=== PATIENT | female | born 1945 | race Caucasian/White ===

== ENCOUNTER 2017-11-04 15:52 | Outpatient (CLI) | payer MEDICARE | END 2017-11-04 15:53 | disposition home or self-care (01) | LOC: BICMAMMO 15:52 | PROVIDERS: ATTEND Physician Assistant | DX: Z12.31 Encounter for screening mammogram for malignant neoplasm of breast (principal); R92.1 Mammographic calcification found on diagnostic imaging of breast; Z80.3 Family history of malignant neoplasm of breast | CPT/HCPCS: 77063; 77067 ==

== ENCOUNTER 2018-11-07 13:49 | Outpatient (CLI) | payer MEDICARE ==
--- NOTE | 2018-11-07 14:23 | MMO ---
Bilateral MAMMO Bilat Screen [facility]. CLINICAL HISTORY: Patient is 73 years old and is seen for screening. The patient has the following family history of breast cancer: sister, at age 58. The patient has no personal history of cancer. VIEWS: The views performed were: bilateral craniocaudal with tomosynthesis and bilateral mediolateral oblique with tomosynthesis. FILMS COMPARED: The present examination has been compared to prior imaging studies performed at [facility] [place] on 09/04/2005, 09/23/2006, 09/22/2007, 09/25/2008, 09/26/2009, 10/07/2010, 10/13/2011, 10/16/2013, 10/19/2014, 10/23/2015, 11/03/2016 and 11/04/2017, and at [facility] on 08/30/2002, 10/02/2003 and 10/03/2004. MAMMOGRAM FINDINGS: There are scattered fibroglandular densities. There are benign appearing calcifications seen in both breasts. There are no suspicious masses, suspicious calcifications, or new areas of architectural distortion. IMPRESSION: THERE IS NO MAMMOGRAPHIC EVIDENCE OF MALIGNANCY. A ROUTINE FOLLOW-UP MAMMOGRAM IN 1 YEAR IS RECOMMENDED. THE RESULTS OF THIS EXAM WERE SENT TO THE PATIENT. ACR BI-RADS Category 2 - Benign finding MAMMOGRAPHY NOTE: 1. A negative mammogram report should not delay a biopsy if a dominant of clinically suspicious mass is present. 2. Approximately 10% to 15% of breast cancers are not detected by mammography. 3. Adenosis and dense breasts may obscure an underlying neoplasm.
== END 2018-11-07 13:50 | disposition home or self-care (01) ==
LOC: BICMAMMO 13:49
PROVIDERS: ATTEND Physician Assistant
DX: Z12.31 Encounter for screening mammogram for malignant neoplasm of breast (principal); Z80.3 Family history of malignant neoplasm of breast
CPT/HCPCS: 77063; 77067

== ENCOUNTER 2019-08-08 12:59 | Outpatient (CLI) | payer MEDICARE, OTHER ==
--- NOTE | 2019-08-08 13:17 | RAD ---
EXAM: Chest 2 views: HISTORY: Dyspnea COMPARISON: None. FINDINGS: There is a normal-sized cardiomediastinal silhouette. There is no evidence of consolidation, mass, or pleural effusion. Degenerative changes are seen in the spine. IMPRESSION: No evidence of acute cardiopulmonary disease
== END 2019-08-08 13:00 | disposition home or self-care (01) ==
LOC: RAD 12:59
PROVIDERS: ATTEND Internal Medicine Critical Care Medicine
DX: R06.00 Dyspnea, unspecified (principal)
CPT/HCPCS: 71046

== ENCOUNTER 2019-11-16 14:05 | Outpatient (CLI) | payer MEDICARE ==
--- NOTE | 2019-11-16 14:41 | MMO ---
Bilateral MAMMO Bilat Screen [facility]. CLINICAL HISTORY: Patient is 74 years old and is seen for screening. The patient has the following family history of breast cancer: sister, at age 58. The patient has no personal history of cancer. VIEWS: The views performed were: bilateral craniocaudal with tomosynthesis and bilateral mediolateral oblique with tomosynthesis. FILMS COMPARED: The present examination has been compared to prior imaging studies performed at [facility] on 10/23/2015, 11/03/2016, 11/04/2017 and 11/07/2018. This study has been interpreted with the assistance of computer-aided detection. MAMMOGRAM FINDINGS: There are scattered fibroglandular densities. There are no suspicious masses, suspicious calcifications, or new areas of architectural distortion. IMPRESSION: THERE IS NO MAMMOGRAPHIC EVIDENCE OF MALIGNANCY. A ROUTINE FOLLOW-UP MAMMOGRAM IN 1 YEAR IS RECOMMENDED. THE RESULTS OF THIS EXAM WERE SENT TO THE PATIENT. ACR BI-RADS Category 1 - Negative MAMMOGRAPHY NOTE: 1. A negative mammogram report should not delay a biopsy if a dominant of clinically suspicious mass is present. 2. Approximately 10% to 15% of breast cancers are not detected by mammography. 3. Adenosis and dense breasts may obscure an underlying neoplasm. Reported by: Johnathon CERVANTES Electonically Signed: [id number]
== END 2019-11-16 14:06 | disposition home or self-care (01) ==
LOC: BICMAMMO 14:05
PROVIDERS: ATTEND Physician Assistant
DX: Z12.31 Encounter for screening mammogram for malignant neoplasm of breast (principal); Z80.3 Family history of malignant neoplasm of breast
CPT/HCPCS: 77063; 77067

== ENCOUNTER 2019-11-24 19:00 | Outpatient (CLI) | payer MEDICARE | END 2019-11-24 19:01 | disposition home or self-care (01) | LOC: SLEEPLAB 19:00 | PROVIDERS: ATTEND Internal Medicine Critical Care Medicine | DX: G47.33 Obstructive sleep apnea (adult) (pediatric) (principal); R06.83 Snoring | CPT/HCPCS: 95810 ==

== ENCOUNTER 2020-11-14 08:27 | Outpatient (CLI) | payer MEDICARE | END 2020-11-14 08:28 | disposition home or self-care (01) | LOC: BICMRI 08:27 | PROVIDERS: ATTEND Neurological Surgery | DX: M47.26 Other spondylosis with radiculopathy, lumbar region (principal) | CPT/HCPCS: 72158; 82565 ==

== ENCOUNTER 2020-11-18 13:30 | Outpatient (CLI) | payer MEDICARE | END 2020-11-18 13:31 | disposition home or self-care (01) | LOC: BICMAMMO 13:30 | PROVIDERS: ATTEND Physician Assistant | DX: Z12.31 Encounter for screening mammogram for malignant neoplasm of breast (principal); Z80.3 Family history of malignant neoplasm of breast | CPT/HCPCS: 77063; 77067 ==

== ENCOUNTER 2021-01-23 14:39 | Outpatient (CLI) | payer MEDICARE ==
[2021-01-23 16:26] LABS: Hemoglobin 13.8 g/dL (12.0-15.5); Mean Corpuscular HGB CONC 34.2 g/dL (32.0-36.0); Mean Corpuscular Hemoglobin 32.5 pg (27.0-33.0); Mean Corpuscular Volume 95.3 fl (81.6-98.3); Mean Platelet Volume 10.7 fl (7.4-10.4); Platelet Count 199 10x3/uL (150-450); RBC Distribution Width 13.6 % (11.5-14.5); Red Blood Cell (RBC) Count 4.24 10x6/uL (3.90-5.03); White Blood Cell (WBC) Count 7.8 10x3/uL (3.5-10.5)
[2021-01-23 16:38] LABS: Anion Gap 18 mmol/L (10-20); BUN (Urea Nitrogen) 14 mg/dL (9.8-20.1); Calc. Creatinine Clearance 0 mL/min (70-130); Calcium 10.3 mg/dL (7.8-10.44); Carbon Dioxide 24 mmol/L (23-31); Chloride 101 mmol/L (98-107); Glucose 97 mg/dL (83-110); Potassium 3.9 mmol/L (3.5-5.1); Sodium 139 mmol/L (136-145)
== END 2021-01-23 14:40 | disposition home or self-care (01) ==
LOC: LABBT 14:39
PROVIDERS: ATTEND Neurological Surgery
DX: Z01.818 Encounter for other preprocedural examination (principal); M54.16 Radiculopathy, lumbar region
CPT/HCPCS: 80048; 85027; 93005; 93010

== ENCOUNTER 2021-01-27 07:23 | Day surgery (SDC) | payer MEDICARE ==
[2021-01-24 13:17] VITALS: BMI 39.6
[2021-01-27] MEDS ORDERED: SUGAMMADEX SODIUM 200 MG/2 ML VIAL ONE (10:17)
[2021-01-27] MEDS ORDERED: Fentanyl 100 MCG/2 ML VIAL ONE ×4 (10:17→14:04)
[2021-01-27] MEDS ORDERED: Rocuronium Bromide 10 MG/ML (10ML VIAL) ONE (11:29)
[2021-01-27] MEDS ORDERED: PROPOFOL 200 MG/20 ML VIAL ONE (11:29)
[2021-01-27] MEDS ORDERED: Lidocaine 1% PF 5 ML VIAL ONE (11:29)
[2021-01-27] MEDS ORDERED: Glycopyrrolate 0.2 MG/ML 5 ML SYRINGE ONE (11:29)
[2021-01-27] MEDS ORDERED: PHENYLEPHRINE-NS 100 MCG/ML 10 ML SYRINGE ONE (11:29)
[2021-01-27] MEDS ORDERED: Ondansetron PF 4 MG/2 ML Vial ONE (11:29)
[2021-01-27] MEDS ORDERED: Dexamethasone 20 MG/5 ML VIAL ONE (11:29)
[2021-01-27] MEDS ORDERED: Morphine 4 MG/ML VIAL ONE (14:29)
[2021-01-27] MEDS ORDERED: traMADol HCl 50 MG TAB ONE ×2 (14:46→21:12)
== END 2021-01-27 21:20 | disposition home or self-care (01) ==
LOC: SDC 07:23
PROVIDERS: ATTEND Neurological Surgery
PROC: 01NB0ZZ Release Lumbar Nerve, Open Approach (ICD-10-PCS; principal; 2021-01-27)
DX: M48.062 Spinal stenosis, lumbar region with neurogenic claudication (principal); M47.26 Other spondylosis with radiculopathy, lumbar region; J45.909 Unspecified asthma, uncomplicated; G89.29 Other chronic pain; E03.9 Hypothyroidism, unspecified; E78.5 Hyperlipidemia, unspecified; E66.9 Obesity, unspecified; Z68.39 Body mass index [BMI] 39.0-39.9, adult; Z79.899 Other long term (current) drug therapy
CPT/HCPCS: 76000; J0690; J1100; J2270; J2405; J2704; J3010; J3370

== ENCOUNTER 2021-08-19 10:40 | Outpatient (CLI) | payer MEDICARE ==
[2021-08-19 12:18] LABS: Bilirubin Neg (Negative); Blood, Urine 50 (Negative); Clarity Slightly Cloudy (Clear); Glucose, Urine (Dipstick) Normal (Negative); Ketone, Urine Negative (Negative); Leukocyte 500 (Negative); Nitrite Negative (Negative); Protein, Urine (Dipstick) 100 mg/dl (Neg-Trace); Urobilinogen Normal mg/dL (Less than 2)
[2021-08-19 12:23] LABS: Hemoglobin 13.8 g/dL (12.0-15.5); Mean Corpuscular HGB CONC 32.8 g/dL (32.0-36.0); Mean Corpuscular Hemoglobin 33.3 pg (27.0-33.0); Mean Corpuscular Volume 101.7 fl (81.6-98.3); Mean Platelet Volume 10.6 fl (7.4-10.4); Platelet Count 172 10x3/uL (150-450); Red Blood Cell (RBC) Count 4.14 10x6/uL (3.90-5.03); White Blood Cell (WBC) Count 8.2 10x3/uL (3.5-10.5)
[2021-08-19 12:47] LABS: Anion Gap 15 mmol/L (10-20); BUN (Urea Nitrogen) 24 mg/dL (9.8-20.1); Calc. Creatinine Clearance 0 mL/min (70-130); Carbon Dioxide 29 mmol/L (23-31); Chloride 98 mmol/L (98-107); Glucose 119 mg/dL (83-110); Potassium 3.8 mmol/L (3.5-5.1); Sodium 138 mmol/L (136-145)
[2021-08-19 12:48] LABS: INR-International Normal Ratio 0.9; PTT 25.7 sec (22.0-33.0); Prothrombin Time 10.5 sec (9.5-12.1)
[2021-08-19 13:02] LABS: Bacteria/HPF 2+ HPF (None Seen); Squamous Epithelial 0-3 HPF (0-3); WBC/HPF Greater Than 50 HPF (0-3)
[2021-08-19 19:54] LABS: SARS-CoV-2 PCR by NAA Not Detected (NotDetected)
== END 2021-08-19 10:41 | disposition home or self-care (01) ==
LOC: LABBT 10:40
PROVIDERS: ATTEND Urology
DX: Z01.818 Encounter for other preprocedural examination (principal); N39.0 Urinary tract infection, site not specified; N32.81 Overactive bladder; N95.2 Postmenopausal atrophic vaginitis; E66.01 Morbid (severe) obesity due to excess calories; K59.01 Slow transit constipation; G47.34 Idiopathic sleep related nonobstructive alveolar hypoventilation; F51.01 Primary insomnia; R73.09 Other abnormal glucose; N99.89 Other postprocedural complications and disorders of genitourinary system; R33.8 Other retention of urine; Z20.822 Contact with and (suspected) exposure to COVID-19
CPT/HCPCS: 80048; 81001; 85027; 85610; 85730; 87086; 93005; U0003; U0005; 87077; 87186; 93010

== ENCOUNTER 2021-08-22 09:52 | Day surgery (SDC) | payer MEDICARE ==
[2021-08-14 10:50] VITALS: BMI 39.9
[2021-08-22] MEDS ORDERED: Fentanyl 100 MCG/2 ML VIAL ONE (10:44)
[2021-08-22] MEDS ORDERED: Famotidine/PF 20 mg/2ml Vial ONE (10:45)
[2021-08-22] MEDS ORDERED: Ondansetron PF 4 MG/2 ML Vial ONE ×2 (10:45→11:50)
[2021-08-22] MEDS ORDERED: SUGAMMADEX SODIUM 200 MG/2 ML VIAL ONE (10:45)
[2021-08-22] MEDS ORDERED: Bupivacaine 0.25% HCL 30 ML VIAL ONE (11:32)
[2021-08-22] MEDS ORDERED: Neomycin-Polymyxin 1 ML AMP ONE (11:32)
[2021-08-22] MEDS ORDERED: ceFAZolin 2 GM/Dextrose 50 ML IVPB ONE (11:36)
[2021-08-22] MEDS ORDERED: PROPOFOL 200 MG/20 ML VIAL ONE (11:50)
[2021-08-22] MEDS ORDERED: Lidocaine 1% PF 5 ML VIAL ONE (11:50)
[2021-08-22] MEDS ORDERED: Glycopyrrolate 0.2 MG/ML 5 ML SYRINGE ONE (11:50)
[2021-08-22] MEDS ORDERED: Ketorolac Tromethamine 30 MG/ML VIAL ONE (11:50)
[2021-08-22] MEDS ORDERED: Rocuronium Bromide 10 MG/ML (10ML VIAL) ONE (11:50)
[2021-08-22] MEDS ORDERED: ePHEDrine 50 MG/ML VIAL ONE (11:50)
[2021-08-22] MEDS ORDERED: Metoclopramide HCl 10 MG/2 ML VIAL ONE (11:50)
[2021-08-22] MEDS ORDERED: PHENYLEPHRINE-NS 100 MCG/ML 10 ML SYRINGE ONE (11:50)
== END 2021-08-22 18:18 | disposition home or self-care (01) ==
LOC: SDC 09:52
PROVIDERS: ATTEND Urology
PROC: 0JH70MZ Insertion of Stimulator Generator into Back Subcutaneous Tissue and Fascia, Open Approach (ICD-10-PCS; principal; 2021-08-22)
PROC: 0TH Urinary System, Insertion (ICD-10-PCS; 2021-08-22)
DX: N32.81 Overactive bladder (principal); N39.0 Urinary tract infection, site not specified; N39.46 Mixed incontinence; R33.9 Retention of urine, unspecified; K59.01 Slow transit constipation; E78.5 Hyperlipidemia, unspecified; E03.9 Hypothyroidism, unspecified; J45.909 Unspecified asthma, uncomplicated; E78.00 Pure hypercholesterolemia, unspecified; E66.01 Morbid (severe) obesity due to excess calories; Z68.39 Body mass index [BMI] 39.0-39.9, adult; Z79.82 Long term (current) use of aspirin; Z79.890 Hormone replacement therapy; Z79.899 Other long term (current) drug therapy; Z88.8 Allergy status to other drugs, medicaments and biological substances; Z91.030 Bee allergy status
CPT/HCPCS: 64581; 72220; 76000; C1897; J0690; J2405; J3010; S0020; S0028

== ENCOUNTER 2021-08-25 11:55 | Outpatient (CLI) | payer MEDICARE ==
[2021-08-26 00:40] LABS: SARS-CoV-2 PCR by NAA Not Detected (NotDetected)
== END 2021-08-25 11:56 | disposition home or self-care (01) ==
LOC: LABBT 11:55
PROVIDERS: ATTEND Urology
DX: Z01.812 Encounter for preprocedural laboratory examination (principal); N39.0 Urinary tract infection, site not specified; R33.8 Other retention of urine; N39.46 Mixed incontinence; N32.81 Overactive bladder; R33.9 Retention of urine, unspecified; N95.2 Postmenopausal atrophic vaginitis; E66.01 Morbid (severe) obesity due to excess calories; K59.01 Slow transit constipation; Z68.41 Body mass index [BMI] 40.0-44.9, adult; F51.01 Primary insomnia; G47.36 Sleep related hypoventilation in conditions classified elsewhere; R73.09 Other abnormal glucose; N99.89 Other postprocedural complications and disorders of genitourinary system; Z20.822 Contact with and (suspected) exposure to COVID-19
CPT/HCPCS: U0003; U0005

== ENCOUNTER 2021-08-28 07:56 | Day surgery (SDC) | payer MEDICARE ==
[2021-08-19 13:20] VITALS: BMI 39.9
[2021-08-28] MEDS ORDERED: Neomycin-Polymyxin 1 ML AMP ONE ×2 (11:05→12:02)
[2021-08-28] MEDS ORDERED: Bupivacaine 0.25% HCL 30 ML VIAL ONE (11:05)
[2021-08-28] MEDS ORDERED: Bacitracin Zinc Ointment 30 gm TUBE ONE (11:05)
[2021-08-28] MEDS ORDERED: ceFAZolin 2 GM/Dextrose 50 ML IVPB ONE (11:25)
[2021-08-28] MEDS ORDERED: Fentanyl 100 MCG/2 ML VIAL ONE (11:27)
[2021-08-28] MEDS ORDERED: Lidocaine 1% PF 5 ML VIAL ONE (11:36)
[2021-08-28] MEDS ORDERED: Dexamethasone 20 MG/5 ML VIAL ONE (11:36)
[2021-08-28] MEDS ORDERED: ePHEDrine 50 MG/ML VIAL ONE (11:36)
[2021-08-28] MEDS ORDERED: PROPOFOL 200 MG/20 ML VIAL ONE (11:36)
[2021-08-28] MEDS ORDERED: Succinylcholine 200 MG/10 ml SYRINGE FS ONE (11:36)
[2021-08-28] MEDS ORDERED: PHENYLEPHRINE-NS 100 MCG/ML 10 ML SYRINGE ONE (11:36)
[2021-08-28] MEDS ORDERED: Ondansetron PF 4 MG/2 ML Vial ONE (11:36)
== END 2021-08-28 14:13 | disposition home or self-care (01) ==
LOC: SDC 07:56
PROVIDERS: ATTEND Urology
PROC: 0JH70BZ Insertion of Single Array Stimulator Generator into Back Subcutaneous Tissue and Fascia, Open Approach (ICD-10-PCS; principal; 2021-08-28)
DX: N32.81 Overactive bladder (principal); N39.46 Mixed incontinence; R33.9 Retention of urine, unspecified; N39.0 Urinary tract infection, site not specified; E03.9 Hypothyroidism, unspecified; E78.5 Hyperlipidemia, unspecified; J45.909 Unspecified asthma, uncomplicated; F51.01 Primary insomnia; E66.01 Morbid (severe) obesity due to excess calories; Z68.39 Body mass index [BMI] 39.0-39.9, adult; Z79.84 Long term (current) use of oral hypoglycemic drugs; Z79.890 Hormone replacement therapy; Z79.899 Other long term (current) drug therapy
CPT/HCPCS: 64590; C1820; C1897; J0690; J1100; J2405; J2704; J3010; J3490; S0020

== ENCOUNTER 2021-12-02 14:14 | Outpatient (CLI) | payer MEDICARE | END 2021-12-02 14:15 | disposition home or self-care (01) | LOC: BICMAMMO 14:14 | PROVIDERS: ATTEND Physician Assistant | DX: Z12.31 Encounter for screening mammogram for malignant neoplasm of breast (principal); Z80.3 Family history of malignant neoplasm of breast | CPT/HCPCS: 77063; 77067 ==

== ENCOUNTER 2022-07-28 10:54 | Outpatient (CLI) | payer MEDICARE | END 2022-07-28 10:55 | disposition home or self-care (01) | LOC: BICMAMMO 10:54 | PROVIDERS: ATTEND Physician Assistant | DX: Z13.820 Encounter for screening for osteoporosis (principal); M85.851 Other specified disorders of bone density and structure, right thigh | CPT/HCPCS: 77080 ==

== ENCOUNTER 2022-09-30 13:37 | Outpatient (CLI) | payer MEDICARE | END 2022-09-30 13:38 | disposition home or self-care (01) | LOC: MRI 13:37 | PROVIDERS: ATTEND Orthopaedic Surgery | DX: M25.562 Pain in left knee (principal); M23.222 Derangement of posterior horn of medial meniscus due to old tear or injury, left knee ==